=== PATIENT | female | born 1960 | race American Indian/Alaskan Native ===

== ENCOUNTER 2018-06-28 05:34 | Day surgery (SDC) | payer OTHER ==
[~2018-06-28 05:34] MED LIST: MARCAINE-EPI 0.5%-1:200,000 INFILTRATI ONE; NACL 0.9% IR ONE
[2018-06-28] MEDS ORDERED: ANCEF/STERILE WATER 2 GM/20 ML IV NR (06:00)
[2018-06-28] MEDS ORDERED: LACTATED RINGERS 1,000 ML ONE (06:24)
[2018-06-28] MEDS ORDERED: DILAUDID ONE ×2 (06:26→06:27)
[2018-06-28] MEDS ORDERED: ZEMURON IV ONE ×2 (06:26→09:43)
[2018-06-28] MEDS ORDERED: XYLOCAINE MPF 2% ONE (06:26)
[2018-06-28] MEDS ORDERED: DIPRIVAN 10 MG/ML IV ONE (06:27)
--- NOTE | 2018-06-28 06:32 | Anesthesia Day of Surgery ---
Anesthesia Day of Surgery - Day of Surgery Patient Examined: Yes Patient H&P Reviewed: Yes Patient is NPO: Yes Beta Blockers: No
--- NOTE | 2018-06-28 06:32 | Anesthesia Consultation ---
Anesthesia Consult and Med Hx Date of service: 06/28/18 - Airway Anesthetic Teeth Evaluation: Good ROM Head & Neck: Adequate Mental/Hyoid Distance: Adequate Mallampati Class: Class II Intubation Access Assessment: Probably Good - Pulmonary Exam CTA: Yes - Cardiac Exam Cardiac Exam: RRR - Pre-Operative Health Status ASA Pre-Surgery Classification: ASA2 Proposed Anesthetic Plan: General - Pulmonary Hx Smoking: No Hx Asthma: No Hx Respiratory Symptoms: No SOB: No - Cardiovascular System Hx Hypertension: No Hx Coronary Artery Disease: No - Central Nervous System Hx Neuromuscular Disorder: Yes Hx Psychiatric Problems: No - Gastrointestinal Hx Ulcer: No - Endocrine Hx Renal Disease: No - Hematic Hx Anemia: No - Other Systems Hx Alcohol Use: Yes (O[place] WINE) Hx Substance Use: No
[2018-06-28] MEDS ORDERED: MARCAINE-EPI 0.5%-1:200,000 INFILTRATI ONE (06:42)
[2018-06-28] MEDS ORDERED: VERSED IV NR (07:00)
[2018-06-28] MEDS ORDERED: LACTATED RINGERS 1,000 ML IV SCH (07:00)
[2018-06-28] MEDS ORDERED: DILAUDID IV PRN (07:16)
[2018-06-28] MEDS ORDERED: TORADOL IV PRN (07:16)
[2018-06-28] MEDS ORDERED: DECADRON ONE (07:22)
[2018-06-28] MEDS ORDERED: ZOFRAN ONE (09:41)
[2018-06-28] MEDS ORDERED: BLOXIVERZ ONE (09:55)
[2018-06-28] MEDS ORDERED: ROBINUL ONE (09:56)
[2018-06-28] MEDS ORDERED: SUBLIMAZE ONE ×2 (09:58)
--- NOTE | 2018-06-28 11:30 | Operative Report ---
PREOPERATIVE DIAGNOSIS: Symptomatic macromastia. POSTOPERATIVE DIAGNOSIS: Symptomatic macromastia. PROCEDURE: 1. Bilateral breast reduction using superior medial pedicle in a Shepard pattern technique, CPT CODE 40037-32. 2. Application of negative pressure wound VAC device, THIERRY to bilateral breasts for postoperative wound healing, CPT CODE 24257-81. SURGEON: Kris Bernardo MD COFFEE MAKER: None. ANESTHESIA: General. OPERATIVE INDICATIONS: This is a 57-year-old female presented to my office with complaint of symptomatic macromastia for several years. Physical exam findings were consistent with symptomatic macromastia. She was approved by her insurance and plan was to remove minimal of 680 grams from each breast. Risks and benefits of surgery discussed with the patient. She agreed. OPERATIVE DETAILS: After informed consent was obtained, the patient was brought to the operating room, placed supine on the operating room table. Preoperative antibiotics and general anesthesia were administered. The patient was prepped and draped in usual sterile fashion and a timeout was called verifying the patient, operation being performed, side and site of the operation. Marking to the main preoperative holding area for a Shepard pattern skin resection and superior medial pedicle. Began on the right side 42 mm cookie cutter was used to resize the areola and then a superior medial pedicle was deepithelialized and carried down to chest wall. Breast reduction was then performed removing the excess medial inferior lateral breast tissue. Hemostasis was achieved 15 mL of 0.25% Marcaine with epinephrine was injected in the chest wall for postoperative pain control. We then performed additional resections as needed for recontouring and temporarily stapled the breast closed. We then proceeded to the left side. Exact same procedure was performed on that side with a 42 mm cookie cutter to resize the areola. The pedicle was deepithelialized and taken down to chest wall and breast reduction was then performed. Hemostasis was achieved. Marcaine was injected in chest wall for postoperative pain control. Additional tailoring was done and then the breast was temporarily closed with lexii. The patient was sat up, assessed for size and symmetry. Additional tailor tacking was done with lexii and markings in order to resect any redundant skin or tissue in order to get better symmetry. We then marked the position of the new nipple areola complexes, sat the patient down, opened everything up, performed additional resections, deepithelialized the area of the nipple areolar complex and then delivered the nipple areola complex, and temporarily stapled in place with lexii. We then proceeded with closure. Closure was done with 3-0 Monocryl deep dermals for the vertical limb and the circumareolar incision. 3-0 Monocryl running subcuticular on the vertical limb. A 4-0 PDS running subcuticular around the areola and then combination of 2-0 Vicryl on the transverse incision to anchor the T junction and then a running 2-0 Monocryl barbed suture to close the skin. We placed TIHERRY negative pressure wound VAC devices on both breasts for postoperative wound healing. The patient was at high risk and then we placed Roberth bandages and breast binder for compression. She tolerated the procedure well, was awakened from general anesthesia, transferred to PACU in stable condition. SPECIMENS: Right breast removed 940 grams, left breast 1060 grams. COMPLICATIONS: None. ESTIMATED BLOOD LOSS: 50 mL. FINDINGS: Bilateral macromastia, viable nipple areolar complexes. JOB# [id number] Kiera/CORIE
--- NOTE | 2018-06-28 13:01 | Post Anesthesia Evaluation ---
- Post Anesthesia Evaluation Patient Participated: Yes Airway Patent: Yes Stable Respiratory Function: Yes Nausea/Vomiting: No Temp > 96.8F: Yes Pain Manageable: Yes Adequeate Hydration: Yes Anesthesia Complications: No
[2018-06-28 13:18] VITALS: BP 136/63
== END 2018-06-28 13:30 | disposition home or self-care (01) ==
LOC: OR 05:34
PROVIDERS: ATTEND Plastic Surgery
DX: N62 Hypertrophy of breast (principal); E66.01 Morbid (severe) obesity due to excess calories; Z68.33 Body mass index [BMI] 33.0-33.9, adult; Z72.89 Other problems related to lifestyle; Z98.51 Tubal ligation status; Z98.891 History of uterine scar from previous surgery; Z98.890 Other specified postprocedural states
CPT/HCPCS: 19318; 81025; 88305; 97607; J0690; J1100; J1170; J1885; J2250; J2405; J2704; J2710; J3010; J7120